=== PATIENT | female | born 1960 | race Caucasian/White ===

== ENCOUNTER 2023-08-10 15:10 | Outpatient (CLI) | payer OTHER, SELFPAY ==
--- NOTE | ~2023-08-10 | XR_ITS ---
EXAMINATION: XR thoracic spine 3V, XR lumbar spine 2-3V DATE: 08/10/2023 15:27 INDICATION: Low back pain TECHNIQUE: 1. One AP, lateral and lateral swimmer's views of the thoracic spine were obtained. 2. AP, lateral and coned-down lateral lumbosacral views of the lumbar spine were obtained. COMPARISON: None. FINDINGS: Thoracic spine: Alignment is normal. Vertebral body heights are normal. And moderate disc height loss at and T8-T9 an d T11-T12 with minimal to mild disc height loss at the remaining thoracic levels. There are bridging osteophytes at multiple levels consistent with diffuse idiopathic skeletal hyperostosis (DISH). Calci fied right lower lobe nodule consistent with old granulomatous disease. Lungs are otherwise clear wit h no focal airspace opacities, pulmonary edema, pleural effusion or pneumothorax. Heart size is wing l. Lumbar spine: Alignment is normal. Vertebral body heights are normal. Disc heights are relatively preserved but wit h mild degenerative endplate changes with small endplate osteophytes at L1-L2 through L3-L4. 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 IMPRESSION: 1. Mild to moderate thoracic and mild lumbar spondylosis. Reviewed, dictated and finalized at location A. IMPRESSION: 1. Mild to moderate thoracic and mild lumbar spondylosis.
== END 2023-08-10 15:11 ==
LOC: MICIMG 15:12
PROVIDERS: PCP Family Medicine; Visit Provider Physician Assistant Medical
DX: M43.04 Spondylolysis, thoracic region (principal); M43.06 Spondylolysis, lumbar region
CPT/HCPCS: 72072; 72100